=== PATIENT | male | born 1975 | race Caucasian/White ===

== ENCOUNTER 2017-11-04 21:29 | Inpatient (IN) | payer OTHER ==
[~2017-11-04] VITALS: Ht 188 cm; Wt 81.6 kg
[~2017-11-04 21:29] MED LIST: ATIVAN1 MG PO; CAMPRAL 333 MG333 M1 PO; DESYREL; LIBRIUM10 MG PO; NOHOMEMEDICATIONS; PHENERGAN 25 MG25 M1 PO
[2017-11-04 21:33] VITALS: BP 138/98
[2017-11-04 22:45] LABS: ABSOLUTE NEUTROPHILS 7.3 thou/uL (1.4-8.2); BASOPHILS 0.7 % (0.0-2.0); EOSINOPHILS 0.2 % (0.0-3.0); HEMATOCRIT 46.9 % (42.0-52.0); LYMPHOCYTES 20.5 % (24.0-44.0); MCH 28.2 pg (26.0-34.0); MCHC 34.2 g/dL (28.0-37.0); MCV 82.4 fL (80.0-100.0); MONOCYTES 4.9 % (1.0-8.0); PLATELET COUNT 284 thou/uL (150-400); POLYS 73.7 % (36.0-66.0); RBC 5.69 mil/uL (4.50-6.00); RDW 12.6 % (10.5-14.5); WBC 9.9 thou/uL (4.0-11.0)
[2017-11-04 22:50] LABS: CALCIUM 8.9 mg/dL (8.5-10.1); CREATININE 0.9 mg/dL (0.7-1.3); POTASSIUM 4.4 mmol/L (3.5-5.1)
[2017-11-04 22:56] LABS: ALBUMIN 4.2 g/dL (3.4-5.0); TOTAL BILIRUBIN 0.5 mg/dL (<0.1-1.0); TOTAL PROTEIN 7.8 g/dL (6.4-8.2)
[2017-11-05 00:02] LABS: URINE BILIRUBIN NEGATIVE (Negative); URINE BLOOD TRACE (Negative); URINE CLARITY CLEAR; URINE COLOR YELLOW; URINE GLUCOSE-RANDOM* NEGATIVE (Negative); URINE KETONES 2+ (Negative); URINE LEUKOCYTES-REFLEX NEGATIVE (Negative); URINE NITRITE-REFLEX NEGATIVE (Negative); URINE PROTEIN (DIPSTICK) TRACE (Negative); URINE SPECIFIC GRAVITY 1.015 (1.005-1.035); URINE UROBILINOGEN 0.2 E.U./dl (0.2-1.0)
[2017-11-05] MEDS ORDERED: PEPCID40 MG PO (03:37)
[2017-11-05] MEDS ORDERED: NORCO 5-325 TA1 EACH PO (03:37)
[2017-11-05] MEDS ORDERED: ZOFRAN ODT4 MG PO (03:37)
[2017-11-05 07:27] VITALS: BP 132/90
[2017-11-05 08:36] LABS: CALCIUM 8.6 mg/dL (8.5-10.1); CREATININE 0.7 mg/dL (0.7-1.3); POTASSIUM 4.3 mmol/L (3.5-5.1)
[2017-11-05 09:50] LABS: URINE BILIRUBIN NEGATIVE (Negative); URINE BLOOD TRACE (Negative); URINE CLARITY CLEAR; URINE COLOR YELLOW; URINE GLUCOSE-RANDOM* 1+ (Negative); URINE KETONES 2+ (Negative); URINE LEUKOCYTES NEGATIVE (Negative); URINE NITRITE NEGATIVE (Negative); URINE PROTEIN (DIPSTICK) TRACE (Negative); URINE SPECIFIC GRAVITY 1.015 (1.005-1.035); URINE UROBILINOGEN 0.2 E.U./dl (0.2-1.0)
[2017-11-05 09:56] LABS: AMP/METHAMP Negative (Negative); BARBITURATES Negative (Negative); BENZODIAZEPINES Negative (Negative); COCAINE Negative (Negative); METHADONE Negative (Negative); OPIATES POSITIVE (Negative); PCP Negative (Negative)
[2017-11-05 15:23] VITALS: BP 149/83
[2017-11-05 19:40] VITALS: BP 140/64
[2017-11-06 03:56] VITALS: BP 147/80
[2017-11-06 07:27] VITALS: BP 134/82
[2017-11-06] MEDS ORDERED: ATIVAN1 MG PO (09:48)
[2017-11-06] MEDS ORDERED: ZOFRAN ODT4 MG PO (09:48)
[2017-11-06] MEDS ORDERED: NORCO 5-325 TA1 EACH PO (09:48)
[2017-11-06 11:37] VITALS: BP 134/82
== END 2017-11-06 12:31 | disposition home or self-care (01) | DRG 440 ==
LOC: ER 21:29 → EROBS 11-05 04:16 → 4E 11-05 05:09
PROVIDERS: Emergency Medicine; Hospitalist; Nurse Practitioner
DX: K85.20 Alcohol induced acute pancreatitis without necrosis or infection (principal); F32.9 Major depressive disorder, single episode, unspecified; R33.9 Retention of urine, unspecified; F10.10 Alcohol abuse, uncomplicated; Z88.0 Allergy status to penicillin
CPT/HCPCS: 10783

== ENCOUNTER 2017-11-16 15:14 | Emergency (ER) | payer OTHER ==
[~2017-11-16] VITALS: Ht 188 cm; Wt 104.3 kg
[~2017-11-16 15:14] MED LIST changes: +NORCO 5-325 TA1 EACH PO; +PEPCID40 MG PO; +ZOFRAN ODT4 MG PO
[2017-11-16 15:19] VITALS: BP 130/87
[2017-11-16 16:48] LABS: ABSOLUTE NEUTROPHILS 4.7 thou/uL (1.4-8.2); EOSINOPHILS 0.6 % (0.0-3.0); HEMATOCRIT 43.2 % (42.0-52.0); LYMPHOCYTES 28.3 % (24.0-44.0); MCH 28.5 pg (26.0-34.0); MCHC 34.7 g/dL (28.0-37.0); MCV 82.2 fL (80.0-100.0); MONOCYTES 7.4 % (1.0-8.0); PLATELET COUNT 338 thou/uL (150-400); POLYS 62.7 % (36.0-66.0); RBC 5.26 mil/uL (4.50-6.00); RDW 12.6 % (10.5-14.5); WBC 7.5 thou/uL (4.0-11.0)
[2017-11-16 16:54] LABS: ANION GAP 17 mmol/L (7-16); BUN 16 mg/dL (7-18); CALCIUM 8.4 mg/dL (8.5-10.1); CHLORIDE 101 mmol/L (98-107); CO2 21 mmol/L (21-32); CREATININE 0.7 mg/dL (0.7-1.3); GLUCOSE 113 mg/dL (74-106); POTASSIUM 3.9 mmol/L (3.5-5.1); SODIUM 139 mmol/L (136-145)
[2017-11-16 16:59] LABS: ALBUMIN 3.9 g/dL (3.4-5.0); DIRECT BILIRUBIN < 0.1 mg/dL (<0.1-0.3); LIPASE 39 U/L (73-393); SGOT 56 U/L (15-37); SGPT 78 U/L (30-65); TOTAL BILIRUBIN 0.4 mg/dL (<0.1-1.0); TOTAL PROTEIN 7.4 g/dL (6.4-8.2)
[2017-11-16 17:56] LABS: URINE BILIRUBIN NEGATIVE (Negative); URINE BLOOD TRACE (Negative); URINE CLARITY CLEAR; URINE COLOR YELLOW; URINE GLUCOSE-RANDOM* NEGATIVE (Negative); URINE KETONES 1+ (Negative); URINE LEUKOCYTES-REFLEX NEGATIVE (Negative); URINE NITRITE-REFLEX NEGATIVE (Negative); URINE PROTEIN (DIPSTICK) TRACE (Negative); URINE SPECIFIC GRAVITY 1.025 (1.005-1.035); URINE UROBILINOGEN 0.2 E.U./dl (0.2-1.0)
[2017-11-16 18:01] LABS: AMP/METHAMP Negative (Negative); BARBITURATES Negative (Negative); BENZODIAZEPINES Negative (Negative); COCAINE Negative (Negative); METHADONE Negative (Negative); OPIATES POSITIVE (Negative); PCP Negative (Negative)
[2017-11-16 19:03] VITALS: BP 101/61
[2017-11-16 20:15] VITALS: BP 134/80
== END 2017-11-16 20:17 | disposition left against medical advice (07) ==
LOC: ER 15:14 → EROBS 17:53 → ER 20:17
PROVIDERS: Emergency Medicine
DX: F10.10 Alcohol abuse, uncomplicated (principal); R10.84 Generalized abdominal pain; F11.20 Opioid dependence, uncomplicated; F32.9 Major depressive disorder, single episode, unspecified; Z90.89 Acquired absence of other organs; Z88.0 Allergy status to penicillin

== ENCOUNTER 2018-12-15 21:22 | Emergency (ER) | payer OTHER ==
[~2018-12-15] VITALS: Ht 188 cm; Wt 77.1 kg
[2018-12-15 23:31] LABS: HEMATOCRIT 43.7 % (42.0-52.0); HEMOGLOBIN 14.5 gm/dL (14.0-18.0); MCH 27.9 pg (26.0-34.0); MCHC 33.3 g/dL (28.0-37.0); RBC 5.2 mil/uL (4.50-6.00); RDW 14.2 % (10.5-14.5)
[2018-12-15 23:38] LABS: CALCIUM 8.5 mg/dL (8.5-10.1); CREATININE 0.7 mg/dL (0.7-1.3); POTASSIUM 3.7 mmol/L (3.5-5.1)
[2018-12-15 23:41] LABS: AMP/METHAMP Negative (Negative); BARBITURATES Negative (Negative); BENZODIAZEPINES Negative (Negative); COCAINE Negative (Negative); METHADONE Negative (Negative); OPIATES Negative (Negative); PCP Negative (Negative)
[2018-12-16 09:25] VITALS: BP 139/93
== END 2018-12-16 09:25 | disposition home or self-care (01) ==
LOC: ER 21:22
PROVIDERS: Emergency Medicine
DX: F10.229 Alcohol dependence with intoxication, unspecified (principal); F32.9 Major depressive disorder, single episode, unspecified; F43.20 Adjustment disorder, unspecified; R45.851 Suicidal ideations; Z88.0 Allergy status to penicillin; Z90.89 Acquired absence of other organs; Y90.0 Blood alcohol level of less than 20 mg/100 ml

== ENCOUNTER 2019-01-06 06:26 | Emergency (ER) | payer OTHER ==
[~2019-01-06] VITALS: Ht 188 cm; Wt 81.7 kg
[2019-01-06 08:37] VITALS: BP 148/84
== END 2019-01-06 08:45 | disposition home or self-care (01) ==
LOC: ER 06:26
DX: F10.239 Alcohol dependence with withdrawal, unspecified (principal); F32.9 Major depressive disorder, single episode, unspecified; Z88.0 Allergy status to penicillin; Z90.89 Acquired absence of other organs

== ENCOUNTER 2019-01-28 02:08 | Emergency (ER) | payer OTHER ==
[~2019-01-28] VITALS: Ht 182.9 cm; Wt 86.2 kg
[2019-01-28 03:01] LABS: HEMATOCRIT 40.7 % (42.0-52.0); HEMOGLOBIN 13.4 gm/dL (14.0-18.0); MCH 28.9 pg (26.0-34.0); MCHC 32.8 g/dL (28.0-37.0); MCV 88.1 fL (80.0-100.0); RBC 4.62 mil/uL (4.50-6.00); RDW 19.2 % (10.5-14.5)
[2019-01-28 03:08] LABS: CALCIUM 8.4 mg/dL (8.5-10.1); CREATININE 0.7 mg/dL (0.7-1.3)
[2019-01-28 11:18] VITALS: BP 116/83
== END 2019-01-28 11:30 | disposition home or self-care (01) ==
LOC: ER 02:08
PROVIDERS: Emergency Medicine
DX: S60.812A Abrasion of left wrist, initial encounter (principal); F10.129 Alcohol abuse with intoxication, unspecified; F32.9 Major depressive disorder, single episode, unspecified; Z88.0 Allergy status to penicillin; Y90.8 Blood alcohol level of 240 mg/100 ml or more; X58.XXXA Exposure to other specified factors, initial encounter; Y93.89 Activity, other specified; Y92.89 Other specified places as the place of occurrence of the external cause; Y99.8 Other external cause status